=== PATIENT | female | born 1995 | race Two or more races ===

== ENCOUNTER 2017-12-23 20:30 | Emergency (ER) | payer OTHER | END 2017-12-23 21:59 | disposition home or self-care (01) | LOC: ER 20:30 | DX: S83.92XA Sprain of unspecified site of left knee, initial encounter (principal); X50.9XXA Other and unspecified overexertion or strenuous movements or postures, initial encounter; Y93.89 Activity, other specified; Y99.8 Other external cause status; Y92.89 Other specified places as the place of occurrence of the external cause | CPT/HCPCS: 73564; 99284 ==

== ENCOUNTER 2018-02-19 02:45 | Emergency (ER) | payer OTHER ==
[2018-02-19] MEDS: KETOROLAC 60 MG/2 ML INJ. IM (03:18)
== END 2018-02-19 03:25 | disposition home or self-care (01) ==
LOC: ER 02:45
DX: S83.92XA Sprain of unspecified site of left knee, initial encounter (principal); G89.29 Other chronic pain; X58.XXXA Exposure to other specified factors, initial encounter; Y93.89 Activity, other specified; Y99.8 Other external cause status; Y92.89 Other specified places as the place of occurrence of the external cause
CPT/HCPCS: 96372; 99283; J1885